=== PATIENT | male | born 1930 | race Caucasian/White ===

== ENCOUNTER 2016-10-15 07:14 | Inpatient (IN) | payer MEDICARE, MEDICAID ==
[2016-10-15] MEDS ORDERED: diphenhydrAMINE 50 MG/ML SDV IVPUSH ONE (09:43)
[2016-10-15] MEDS ORDERED: Sodium Chloride 0.9% 10 ML Syringe FLUSH PRN (09:43)
[2016-10-15] MEDS ORDERED: Furosemide 40 MG/4 ML VIAL IVPUSH ONE ×2 (09:43→14:45)
[2016-10-15] MEDS ORDERED: Menthol/Zinc Oxide Ointment 113 GM Tube TOP PRN (09:59)
[2016-10-15] MEDS ORDERED: GLYCERIN OP PRN (09:59)
[2016-10-15] MEDS ORDERED: [UNRECOGNIZED DRUG - OTHER] OP PRN (09:59)
[2016-10-15] MEDS ORDERED: PROPYLENE GLYCOL OP PRN (09:59)
[2016-10-15] MEDS ORDERED: Non-Formulary Medication 1 Each (Ergocalciferol (Vitamin D2) [Vitamin D2] 2,000 UNIT) PO SCH (10:00)
[2016-10-15] MEDS ORDERED: Polyvinyl Alcohol 1.4% Ophth Soln 15 ML Bottle EYEBOTH PRN (10:36)
--- NOTE | 2016-10-15 11:46 | PCM.HP ---
H&P History of Present Illness - General Date of Service: 10/15/16 Admit Problem/Dx: Admission Diagnosis/Problem Admission Diagnosis/Problem Bleeding from anus Source of Information: Patient History Limitations: Reports: No limitations - History of Present Illness Initial Comments - Free Text/Narative: Pt is 85 year old male , who is resident of [facility], who has been having loose stools for the past 4 days now. Pt claims initially his stools were lose and watery and since 10/13/16 he has noted some blood in the stool. But patient did not notify the [facility] staff. Yesterday the nurse legal services manager at [facility] did see blood in the stools and called for evaluation. Pt has been feeling tired when he walks. He has not had any shortness of breath, chest pain or palpitations asso with. No nausea or vomiting. No fever or chills. No abdominal pain or distension. Pt was seen by me yesterday. He did appear pale, hence CBC was done, and his Hemoglobin was down from 12.5 to 8.1 and also his HCT down from 32 to 25. Pt was advised admission, but patient declined. The [facility] staff was advised to monitor for further bloody stool. He has had 2 small bloody stool last night. Stool are now formed and his dark and tarry. On today morning visit. Pt claims that he feels exhausted. He refused his breakfast and wants to drink ensure. His vital are stable. His Hemoglobin today is down to 7.6 with HCt of 24. Admitted for blood transfusion and close monitoring. Onset of Symptoms: Reports: gradual Symptom Onset Date: 10/12/16 Improves with: Reports: None Worsens with: Reports: None Associated Symptoms: Reports: weakness. Denies: confusion, chest pain, cough, fever/chills, headaches, loss of appetite, nausea/vomiting, rash, shortness of breath - Related Data Allergies/Adverse Reactions: Allergies Allergy/AdvReac Type Severity Reaction Status Date / Time No Known Allergies Allergy Verified 10/15/16 09:45 Home Medications: Home Meds Metoprolol Succinate 200 mg PO DAILY 08/25/13 [History] Omeprazole 20 mg PO DAILY 08/25/13 [History] Simvastatin [Zocor] 20 mg PO BEDTIME 08/25/13 [History] Spironolactone [Aldactone] 25 mg PO DAILY 08/25/13 [History] Cetirizine [ZyrTEC] 10 mg PO DAILY #30 tablet 10/04/13 [Rx] Bumetanide [Bumex] 8 mg PO DAILY 08/07/14 [History] Glycerin/Propylene Glycol [Artificial Tears Drops] 15 ml OP DAILY PRN 02/15/16 [ History] Menthol/Zinc Oxide [Calmoseptine] 1 applic .XX ASDIRECTED PRN 02/15/16 [History] Oxybutynin Chloride [Ditropan Xl] 10 mg PO DAILY 02/15/16 [History] Zolpidem [Ambien] 5 mg PO BEDTIME 02/15/16 [History] Ergocalciferol (Vitamin D2) [Vitamin D2] 2,000 unit PO Q7D 10/15/16 [History] Past Medical History HEENT History: Reports: Impaired vision Cardiovascular History: Reports: Other (see below) Other Cardiovascular History: CHF Gastrointestinal History: Reports: Other (see below) Other Gastrointestinal History: acid reflux Other Genitourinary History: increased frequency of urination Musculoskeletal History: Reports: Osteoarthritis, Other (see below) Other Musculoskeletal History: kyphosis of thoraxcic region Endocrine/Metabolic History: Reports: Diabetes, type II Hematologic History: Reports: None Other Dermatologic History: rash in groin area Social & Family History - Family History Family Medical History: Noncontributory HEENT: Reports: None Cardiac: Reports: None OBGYN: Reports: None Musculoskeletal: Reports: None Hematologic: Reports: None Dermatologic: Reports: None - Tobacco Use Smoking Status *Q: Current Some Day Smoker Years of Tobacco use: 60 Packs/Tins Daily: 0 Used Tobacco, but Quit: No Month Tobacco Last Used: unknown Second Hand Smoke Exposure: Yes - Alcohol Use Days Per Week of Alcohol Use: 1 Number of Drinks Per Day: 0 Total Drinks Per Week: 0 - Recreational Drug Use Recreational Drug Use: No H&P Review of Systems - Review of Systems: Review Of Systems: See Below General: Reports: weakness, fatigue. Denies: fever, chills HEENT: Denies: hearing changes, rhinitis, post nasal drip Pulmonary: Denies: Shortness of Breath, Cough, Sputum Cardiovascular: Denies: chest pain, palpitations, lightheadedness Gastrointestinal: Reports: Diarrhea, Flatus, Hematochezia, Melena. Denies: Abdominal pain, Constipation, Nausea, Vomiting Genitourinary: Denies: dysuria, frequency Musculoskeletal: Denies: neck pain, shoulder pain, joint pain, joint swelling Skin: Reports: pallor. Denies: pruritis, rash Psychiatric: Denies: confusion, anxiety Exam - Exam Exam: See Below - Vital Signs Vital Signs: Last Vital Signs Temp 98.3 F 10/15/16 11:26 Pulse 65 10/15/16 11:20 Resp 16 10/15/16 11:26 BP 115/47 L 10/15/16 11:26 Pulse Ox 99 10/15/16 11:26 Weight: 102.058 kg - Exam General: alert, oriented, other (pallor) HEENT: PERRLA, Conjunctiva clear, EACs clear, EOMI, Hearing intact, Nares patent , Normal nasal septum, Posterior pharynx clear, TMs clear, Other (pale tongue and skin) Neck: supple, trachea midline, 2 Lungs: Clear to auscultation, Normal respiratory effort Cardiovascular: regular rate, regular rhythm Abdomen: normal bowel sounds, soft. No: distention, rigidity, tenderness, hepatomegaly, splenomegaly Extremities: edema Peripheral Pulses: 2+: carotid (L), carotid (R), radial (L), radial (R) Skin: warm, intact, other (pale) Neuro Extensive - Mental Status: alert, oriented x3, normal mood/affect, normal cognition Psychiatric: alert, normal affect, normal mood - Patient Data Lab Results last 24 hrs: Laboratory Results - last 24 hr 10/15/16 10/15/16 10/15/16 Range/Units 07:10 07:10 07:10 WBC 10.0 (4.0-11.0) K/uL RBC 2.86 L (4.50-6.50) M/uL Hgb 7.6 L (13.0-18.0) g/dL Hct 24.0 L (40.0-54.0) % MCV 84 (76-96) fL MCH 26.6 L (27.0-32.0) pg MCHC 31.7 (31.0-35.0) g/dL RDW 15.2 (11.0-16.0) % Plt Count 204 (150-400) K/uL MPV 10.5 H (6.0-10.0) fL PT 11.1 (9.0-11.5) sec INR 1.1 (1.0-3.5) Sodium 134 L (136-145) mmol/L Potassium 4.0 (3.5-5.1) mmol/L Chloride 99 (98-107) mmol/L Carbon Dioxide 28.3 (21.0-32.0) mmol/L Anion Gap 10.7 (5.0-15.0) mmol/L BUN 79 H* D (8-26) mg/dL Creatinine 1.66 H (0.70-1.30) mg/dL Est Cr Clr Drug Dosing 32.05 mL/min Estimated GFR (MDRD) 40 L (>60) MLS/MIN BUN/Creatinine Ratio 47.6 H (6-25) Glucose 127 H D (74-100) mg/dL Calcium 8.2 L (8.5-10.1) mg/dL Total Bilirubin 0.4 D (0.0-1.0) mg/dL AST 12 L (15-37) U/L ALT 9 L (12-78) U/L Alkaline Phosphatase 70 (46-116) U/L Total Protein 6.3 L (6.4-8.2) g/dL Albumin 2.8 L (3.4-5.0) g/dL Globulin 3.5 (2.2-4.2) g/dL Albumin/Globulin Ratio 0.8 (0.8-2.0) Blood Type Gel Antibody Screen Crossmatch 10/15/16 Range/Units 07:10 WBC (4.0-11.0) K/uL RBC (4.50-6.50) M/uL Hgb (13.0-18.0) g/dL Hct (40.0-54.0) % MCV (76-96) fL MCH (27.0-32.0) pg MCHC (31.0-35.0) g/dL RDW (11.0-16.0) % Plt Count (150-400) K/uL MPV (6.0-10.0) fL PT (9.0-11.5) sec INR (1.0-3.5) Sodium (136-145) mmol/L Potassium (3.5-5.1) mmol/L Chloride (98-107) mmol/L Carbon Dioxide (21.0-32.0) mmol/L Anion Gap (5.0-15.0) mmol/L BUN (8-26) mg/dL Creatinine (0.70-1.30) mg/dL Est Cr Clr Drug Dosing mL/min Estimated GFR (MDRD) (>60) MLS/MIN BUN/Creatinine Ratio (6-25) Glucose (74-100) mg/dL Calcium (8.5-10.1) mg/dL Total Bilirubin (0.0-1.0) mg/dL AST (15-37) U/L ALT (12-78) U/L Alkaline Phosphatase (46-116) U/L Total Protein (6.4-8.2) g/dL Albumin (3.4-5.0) g/dL Globulin (2.2-4.2) g/dL Albumin/Globulin Ratio (0.8-2.0) Blood Type O NEGATIVE Gel Antibody Screen Negative Crossmatch See Detail Result Diagrams: 10/15/16 07:10 10/15/16 07:10 Pernell Results last 24 hrs: Microbiology 10/15/16 08:49 Occult Blood (FIT) - Final Stool / Feces *Q Meaningful Use (ADM) - VTE *Q VTE Criteria *Q: - Stroke *Q Stroke Criteria *Q: - AMI *Q AMI Criteria *Q: - Problem List (1) Acute lower GI hemorrhage SNOMED Code(s): 36014037 ICD Code: K92.2 - GASTROINTESTINAL HEMORRHAGE, UNSPECIFIED Status: Acute Current Visit: Yes Problem List Initiated/Reviewed/Updated: Yes Orders Last 24hrs: Active Orders 24 hr Category Date Time Status Patient Status [ADT] Routine ADT 10/15/16 09:44 Active Bedrest Bathroom Privileges [RC] ASDIRECTED Care 10/15/16 09:43 Active Cardiac Monitoring [RC] CONTINUOUS Care 10/15/16 09:58 Active Height and Weight [RC] UPON Care 10/15/16 09:43 Active Intake and Output [RC] 06,18 Care 10/15/16 09:45 Active Oxygen Therapy [RC] PRN Care 10/15/16 09:44 Active VTE/DVT Education [RC] Per Unit Routine Care 10/15/16 09:44 Active Vital Signs [RC] Q4H Care 10/15/16 09:44 Active Clear Liquid Diet [DIET] Diet 10/15/16 Lunch Ordered BASIC METABOLIC PANEL,BMP [CHEM] Routine Lab 10/16/16 07:00 Ordered CULTURE MRSA SURVEY [RM] Routine Lab 10/15/16 10:45 Received HEMOGLOBIN/HEMATOCRIT,HH [HEME] Q4H Lab 10/16/16 05:11 Ordered RED BLOOD CELLS LP [BBK] Routine Lab 10/15/16 07:10 Results TYPE AND SCREEN [BBK] Routine Lab 10/15/16 07:10 Results Bumetanide [Bumex] Med 10/16/16 08:00 Active 8 mg PO DAILY Cetirizine [ZyrTEC] Med 10/16/16 08:00 Active 10 mg PO DAILY Ergocalciferol (Vitamin D2) [Vitamin D2] Med 10/15/16 10:00 Ordered 2,000 unit PO Q7D Menthol/Zinc Oxide [Calmoseptine] Med 10/15/16 09:59 Active 1 gm TOP ASDIRECTED PRN Metoprolol Succinate [Toprol XL] Med 10/16/16 08:00 Active 200 mg PO DAILY Oxybutynin [Oxybutynin ER] Med 10/16/16 08:00 Active 10 mg PO DAILY Pantoprazole [Protonix IV] Med 10/15/16 09:45 Active 40 mg IVPUSH DAILY Polyvinyl Alcohol [LiquiTears 1.4% Ophth Soln] Med 10/15/16 10:36 Active 1 - 2 ml EYEBOTH ASDIRECTED PRN Simvastatin [Zocor] Med 10/15/16 20:00 Active 20 mg PO BEDTIME Sodium Chloride 0.9% [Saline Flush] Med 10/15/16 09:43 Active 10 ml FLUSH ASDIRECTED PRN Spironolactone [Aldactone] Med 10/16/16 08:00 Active 25 mg PO DAILY Zolpidem [Ambien] Med 10/15/16 20:00 Active 5 mg PO BEDTIME Peripheral IV Insertion Adult [OM.PC] Urgent Oth 10/15/16 09:43 Ordered Transfuse PRBC [Transfuse Red Blood Cells] [COMM] Stat Oth 10/15/16 08:48 Ordered Resuscitation Status Routine Resus Stat 10/15/16 09:43 Ordered Medication Orders Artificial Tears (Liquitears 1.4% Ophth Soln) 1 - 2 ml EYEBOTH ASDIRECTED PRN PRN Reason: DRY EYES Bumetanide (Bumex) 8 mg PO DAILY [facility] Calamine/Phenol (Calmoseptine) 1 gm TOP ASDIRECTED PRN PRN Reason: Rash Cetirizine HCl (Zyrtec) 10 mg PO DAILY [facility] Metoprolol Succinate (Toprol Xl) 200 mg PO DAILY [facility] Non-Formulary Medication (Ergocalciferol (Vitamin D2) [Vitamin D2]) 2,000 unit PO Q7D [facility] Oxybutynin Chloride (Oxybutynin Er) 10 mg PO DAILY [facility] Pantoprazole Sodium (Protonix Iv) 40 mg IVPUSH DAILY [facility] Simvastatin (Zocor) 20 mg PO BEDTIME [facility] Sodium Chloride (Saline Flush) 10 ml FLUSH ASDIRECTED PRN PRN Reason: Keep Vein Open Spironolactone (Aldactone) 25 mg PO DAILY [facility] Zolpidem Tartrate (Ambien) 5 mg PO BEDTIME [facility] Assessment/Plan Comment:: Assessment:Lower GI bleed Blood loss anemia Plan: pt does appear to have active painless lower GI bleed. His stool are guillermo bloody. Might have diverticular bleed. The frequency seem to be coming down, but still has active bleeding. His hemoglobin today is down to 7.6 and he is symptomatic. His heart rate is not elevated due to betablockers he is taking , but his pulse pressure has widened. He is going form compensated anemia to decompensation.He is fatigued and claims feels exhausted. i did discuss with patient that he does need blood transfusion to make him feel better. If not will start to get worse and might have end organ symptoms like chest pain, shortness of breath with exertion, confusion and if bleeding continue, might get comatose. Today patient agrees for admission. His CMP appear normal other than BUN of 79 consistent with GI bleed. PT and INR are normal. Plan is to give him 2 units of PRBCs and closely monitor for further blood loss with serial HB/HCT. If he continue to bleed might need surgical evaluation. If bleeding stops and stabilizes might need interval colonoscopy.
[2016-10-15] MEDS: Pantoprazole 40 MG Vial IVPUSH SCH (14:55)
[2016-10-15] MEDS ORDERED: Simvastatin 20 MG Tab PO SCH (20:00)
[2016-10-15] MEDS ORDERED: Zolpidem 5 MG Tab PO SCH (20:00)
[2016-10-16] MEDS ORDERED: Metoprolol Succinate 100 MG Tab.ER ONE (07:48)
[2016-10-16] MEDS ORDERED: Spironolactone 25 MG Tab PO SCH (08:00)
[2016-10-16] MEDS ORDERED: Cetirizine 10 MG Tab PO SCH (08:00)
[2016-10-16] MEDS ORDERED: Bumetanide 2 MG Tab PO SCH (08:00)
[2016-10-16] MEDS ORDERED: Oxybutynin 5 MG Tab.ER PO SCH (08:00)
[2016-10-16] MEDS ORDERED: Metoprolol Succinate 100 MG Tab.ER PO SCH ×2 (08:00→20:00)
[2016-10-16] MEDS ORDERED: Non-Formulary Medication 1 Each (Oxybutynin Chloride [Ditropan Xl] 10 MG) PO SCH (08:00)
[2016-10-16] MEDS ORDERED: Non-Formulary Medication 1 Each (Metoprolol Succinate [Metoprolol Succinate] 200 MG) PO SCH (08:00)
--- NOTE | 2016-10-16 08:40 | PCM.DCSUM1 ---
Discharge Summary - Hospital Course Free Text/Narrative:: Pt was admitted to hospital with lower GI bleed with symptomatic anemia yesterday. He did receive 2 units of PRBC yesterday. his hemoglobin is up from 7.6 to 8.7.Also his BUN was 69 and is down to 54 today. He has not had anymore bloody stools in the hospital , he has not had any bowel movement since he has been admitted. no abdominal pain or distension. Has been feeling better, more energetic than yesterday, has been able to walk to bathroom and back with out feeling tired. It does appear like diverticular bleed from history. Apparently when patient was on cardiac monitoring , Afib ws noticed, pt claims that he has been in Afib all his life. He was on coumadin which was stopped several years ago. he does not want to go back on it at this point, which I do agree. Pt has been discharged back to care center. Will have CBC and BMP done on Thursday. Will decreased his Metoprolol ER to 100mg daily. Have started him on oral FESO4 325mg twice daily. He will need to be scheduled for interval colonoscopy for work up of GI bleed. Pt is stable enough to be discharge back to care [place]. Brief History: Pt was admitted to hospital for blood transfusion and followup on his acute lower GI bleed with blood loss anemia with hemoglobin of 7.6. - Discharge Data Discharge Date: 10/16/16 Discharge Disposition: DC/Tfer to [facility] 64 Condition: Good - Discharge Diagnosis/Problem(s) (1) Acute lower GI hemorrhage SNOMED Code(s): 80061047 ICD Code: K92.2 - GASTROINTESTINAL HEMORRHAGE, UNSPECIFIED Status: Acute Current Visit: Yes - Patient Instructions Diet: Mechanical Soft Fluid Restriction: 1500 mL Activity: As Tolerated Showering/Bathing: May Shower - Discharge Plan Home Medications: Home Meds Omeprazole 20 mg PO DAILY 08/25/13 [History] Simvastatin [Zocor] 20 mg PO BEDTIME 08/25/13 [History] Spironolactone [Aldactone] 25 mg PO DAILY 08/25/13 [History] Cetirizine [ZyrTEC] 10 mg PO DAILY #30 tablet 10/04/13 [Rx] Bumetanide [Bumex] 8 mg PO DAILY 01/05/15 [History] Glycerin/Propylene Glycol [Artificial Tears Drops] 15 ml OP DAILY PRN 02/15/16 [ History] Menthol/Zinc Oxide [Calmoseptine] 1 applic .XX ASDIRECTED PRN 02/15/16 [History] Oxybutynin Chloride [Ditropan Xl] 10 mg PO DAILY 02/15/16 [History] Zolpidem [Ambien] 5 mg PO BEDTIME 02/15/16 [History] Ergocalciferol (Vitamin D2) [Vitamin D2] 2,000 unit PO Q7D 10/15/16 [History] Oxybutynin [Oxybutynin ER] 10 mg PO DAILY tab.er 10/16/16 [Rx] Polyvinyl Alcohol [LiquiTears 1.4% Ophth Soln] 1 - 2 ml EYEBOTH ASDIRECTED PRN # 0 bottle 10/16/16 [Rx] Simvastatin [Zocor] 20 mg PO BEDTIME tablet 10/16/16 [Rx] - Discharge Summary/Plan Comment DC Time >30 min.: Yes Discharge Summary/Plan Comment: Apparently when patient was on cardiac monitoring , Afib ws noticed, pt claims that he has been in Afib all his life. He was on coumadin which was stopped several years ago. he does not want to go back on it at this point, which I do agree. Pt has been discharged back to care center. Will have CBC and BMP done on Thursday. Will decreased his Metoprolol ER to 100mg daily. Have started him on oral FESO4 325mg twice daily. He will need to be scheduled for interval colonoscopy for work up of GI bleed. Pt is stable enough to be discharge back to care center. - General Info Date of Service: 10/16/16 Admission Dx/Problem (Free Text: Pt claims he has been feeling better. he feel more energetic today. He has been able to walk to bathroom and back with out feeling tired or weak. Has not had any more stools or blood per rectum since admission. no abdominal pain or discomfort. Functional Status: Reports: tolerating diet, ambulating, urinating - Review of Systems General: Denies: Fever, Weakness, Fatigue HEENT: Denies: headaches, sinus congestion Pulmonary: Denies: shortness of breath, hemoptysis, wheezing Cardiovascular: Denies: Chest Pain, Lightheadedness Gastrointestinal: Denies: Abdominal pain, Decreased appetite, Hematochezia, Melena, Nausea, Vomiting Genitourinary: Denies: dysuria, frequency Musculoskeletal: Denies: neck pain, shoulder pain, joint pain, joint swelling Skin: Denies: pruritis, rash Neurological: Denies: Confusion, Dizziness - Patient Data Vitals - Most Recent: Last Vital Signs Temp 98.2 F 10/16/16 00:58 Pulse 59 L 10/16/16 00:58 Resp 16 10/16/16 00:58 BP 135/53 L 10/16/16 00:58 Pulse Ox 97 10/16/16 00:58 Weight - Most Recent: 102.058 kg I&O - Last 24 hours: Intake & Output 10/15/16 10/16/16 10/16/16 22:59 06:59 14:59 Intake Total 1230 520 Output Total 600 Balance 630 520 Lab Results - Last 24 hrs: Laboratory Results - last 24 hr 10/15/16 10/15/16 10/16/16 Range/Units 07:10 07:10 07:20 Hgb 8.7 L (13.0-18.0) g/dL Hct 26.6 L (40.0-54.0) % PT 11.1 (9.0-11.5) sec INR 1.1 (1.0-3.5) Sodium (136-145) mmol/L Potassium (3.5-5.1) mmol/L Chloride (98-107) mmol/L Carbon Dioxide (21.0-32.0) mmol/L Anion Gap (5.0-15.0) mmol/L BUN (8-26) mg/dL Creatinine (0.70-1.30) mg/dL Est Cr Clr Drug Dosing mL/min Estimated GFR (MDRD) (>60) MLS/MIN BUN/Creatinine Ratio (6-25) Glucose (74-100) mg/dL Calcium (8.5-10.1) mg/dL Blood Type O NEGATIVE Gel Antibody Screen Negative Crossmatch See Detail 10/16/16 Range/Units 07:20 Hgb (13.0-18.0) g/dL Hct (40.0-54.0) % PT (9.0-11.5) sec INR (1.0-3.5) Sodium 139 (136-145) mmol/L Potassium 3.4 L (3.5-5.1) mmol/L Chloride 102 (98-107) mmol/L Carbon Dioxide 28.2 (21.0-32.0) mmol/L Anion Gap 12.2 (5.0-15.0) mmol/L BUN 59 H* D (8-26) mg/dL Creatinine 1.40 H (0.70-1.30) mg/dL Est Cr Clr Drug Dosing 38.00 mL/min Estimated GFR (MDRD) 48 L (>60) MLS/MIN BUN/Creatinine Ratio 42.1 H (6-25) Glucose 96 (74-100) mg/dL Calcium 7.9 L (8.5-10.1) mg/dL Blood Type Gel Antibody Screen Crossmatch INA Results - Last 24 hrs: Microbiology 10/15/16 08:49 Occult Blood (FIT) - Final Stool / Feces Med Orders - Current: Current Medications Artificial Tears (Liquitears 1.4% Ophth Soln) 1 - 2 ml EYEBOTH ASDIRECTED PRN PRN Reason: DRY EYES Bumetanide (Bumex) 8 mg PO DAILY [facility] Calamine/Phenol (Calmoseptine) 1 gm TOP ASDIRECTED PRN PRN Reason: Rash Cetirizine HCl (Zyrtec) 10 mg PO DAILY [facility] Non-Formulary Medication (Ergocalciferol (Vitamin D2) [Vitamin D2]) 2,000 unit PO Q7D [facility] Oxybutynin Chloride (Oxybutynin Er) 10 mg PO DAILY [facility] Pantoprazole Sodium (Protonix Iv) 40 mg IVPUSH DAILY [facility] Last Admin: 10/15/16 14:55 Dose: 40 mg Simvastatin (Zocor) 20 mg PO BEDTIME [facility] Last Admin: 10/15/16 21:17 Dose: 20 mg Sodium Chloride (Saline Flush) 10 ml FLUSH ASDIRECTED PRN PRN Reason: Keep Vein Open Spironolactone (Aldactone) 25 mg PO DAILY [facility] Zolpidem Tartrate (Ambien) 5 mg PO BEDTIME [facility] Last Admin: 10/15/16 21:17 Dose: 5 mg Discontinued Medications Diphenhydramine HCl (Benadryl) 25 mg IVPUSH ONETIME ONE Stop: 10/15/16 09:44 Last Admin: 10/15/16 20:34 Dose: Not Given Furosemide (Lasix) 20 mg IVPUSH ONETIME ONE Stop: 10/15/16 09:44 Last Admin: 10/15/16 14:59 Dose: 20 mg Furosemide (Lasix) 20 mg IVPUSH ONETIME ONE Stop: 10/15/16 14:46 Last Admin: 10/15/16 20:30 Dose: Not Given Metoprolol Succinate (Toprol Xl) 200 mg PO DAILY [facility] Metoprolol Succinate (Toprol Xl) Confirm Administered Dose 100 mg .ROUTE .STK- MED ONE Stop: 10/16/16 07:49 - Exam General: Reports: alert, oriented HEENT: Reports: Pupils equal, Pupils reactive, EOMI, Mucous membr. moist/pink Neck: Reports: supple Lungs: Reports: Clear to auscultation, Normal respiratory effort Cardiovascular: Reports: Irregular Rhythm Abdomen: Reports: bowel sounds present, soft, no tenderness, no distension Back Exam: Reports: normal inspection, full range of motion Extremities: Reports: edema (chronic has caitlin wraps on the feet and lower legs.) Skin: Reports: warm, intact, moist Neurological: Reports: no new focal deficit Psy/Mental Status: Reports: alert, normal affect, normal mood *Q Meaningful Use (DIS) - VTE *Q VTE Criteria *Q: - Stroke *Q Stroke Criteria *Q: - AMI *Q AMI Criteria *Q:
[2016-10-16] MEDS: Pantoprazole 40 MG Vial IVPUSH SCH ×2 (08:50→10:21)
[2016-10-16 10:23] VITALS: BP 125/55
[2016-10-16] MEDS ORDERED: Ferrous Sulfate 325 MG Tab PO SCH (17:00)
[2016-10-17] MEDS ORDERED: Ergocalciferol (Vitamin D2) 50,000 Unit Cap PO SCH (10:30)
== END 2016-10-16 10:45 | DRG 812 ==
LOC: LB.CC 07:14 → UNDOADMIN 08:40 → LB.MS 08:40
PROVIDERS: ADMIT Family Medicine; ATTEND Family Medicine
PROC: 30233N1 Transfusion of Nonautologous Red Blood Cells into Peripheral Vein, Percutaneous Approach (ICD-10-PCS; principal; 2016-10-15)
DX: D64.9 Anemia, unspecified (principal); K92.2 Gastrointestinal hemorrhage, unspecified
CPT/HCPCS: 36415; 36430; 80048; 80053; 82274; 85014; 85018; 85027; 85610; 86850; 86900; 86901; 86920; 86922; A9270-GY; C9113; J1940; P9016

== ENCOUNTER 2016-11-11 07:11 | Day surgery (SDC) | payer MEDICARE, MEDICAID ==
[~2016-11-11 07:11] MED LIST: Metoclopramide 10 MG/2 ML SDV IV PRN; Sodium Chloride 0.9% 10 ML Syringe FLUSH PRN
[2016-11-11] MEDS: Sodium Chloride 0.9% 1,000 ML IV SCH ×2 (08:30→10:30)
[2016-11-11] MEDS ORDERED: Propofol 200 MG/20 ML SDV ONE (11:50)
[2016-11-11 12:24] VITALS: BP 118/64
--- NOTE | 2016-11-11 18:19 | OR ---
DATE OF OPERATION: 11/11/2016 PREOPERATIVE DIAGNOSES: 1. Lower GI bleed. 2. Chronic diarrhea. POSTOPERATIVE DIAGNOSES: 1. Diverticulosis of the sigmoid. 2. Otherwise normal colonoscopy. OPERATION: Colonoscopy. COMPLICATIONS: None. DRAINS: None. SPECIMENS: None. ESTIMATED BLOOD LOSS: Zero. ANESTHESIA: General propofol anesthesia. INDICATION: Mr. Fulton is an 85-year-old gentleman who has had a recent history of lower GI bleed requiring 2 units of blood transfusion as well as chronic diarrhea. The above- mentioned procedure was explained. The risks, benefits, complications were explained. The patient understood and agreed, and was brought to the operating room. DESCRIPTION OF PROCEDURE: The patient was brought to the operating room, placed in a left lateral decubitus position, and satisfactory general propofol anesthesia was administered. We began by performing a rectal examination which revealed no significant abnormalities. I then placed the endoscope by finger introduction into the rectum and subsequently advanced this to the level of the cecum. The appendiceal orifice was identified. The ileocecal valve was identified, and the cecal strap was identified. Careful evaluation of the mucosa was then performed on withdrawal. The prep was fair and after washout, views were fair. Small subtle lesions may have been missed due to a large amount of retained semi-solid stool. Next, a careful evaluation revealed diverticulosis of the sigmoid colon. No gross lesions. No polyps or telangiectasias were identified. There were no other abnormalities. The rectum was within normal limits. However, there were apparently grade 1 hemorrhoids. The colon was then decompressed and the endoscope was withdrawn. The patient tolerated the procedure well. There were no complications. Instrument count was correct. The patient was woken in the OR and taken to PACU for recovery. DEMETRIO /[id number]
== END 2016-11-11 13:40 ==
LOC: LB.SDS 07:11
PROVIDERS: ATTEND Surgery
DX: Z12.11 Encounter for screening for malignant neoplasm of colon (principal); K57.30 Diverticulosis of large intestine without perforation or abscess without bleeding; Z87.891 Personal history of nicotine dependence
CPT/HCPCS: 45378; J2704; J7040

== ENCOUNTER 2016-11-25 23:27 | Emergency (ER) | payer MEDICARE, MEDICAID ==
[2016-11-25] MEDS ORDERED: Diphtheria/Tetanus Toxoids,Adult (Td) 0.5 ML SDV IM ONE (23:45)
[2016-11-26 00:38] VITALS: BP 137/81
--- NOTE | 2016-11-26 11:48 | EDM.PDOC ---
ED HPI Skin/Rash - General Chief Complaint: Laceration Stated Complaint: laceration Time Seen by Provider: 11/25/16 23:30 Source: Reports: Patient History Limitations: Reports: No limitations - History of Present Illness INITIAL COMMENTS - FREE TEXT/NARRATIVE: According to patient he was trying to get into his recliner chair and her accidentally fell forward and hit his forehead against the floor about 20 minutes ago. No loss of consciousness. No headache. No nausea of vomiting. Pt is alert and claims he is not hurting now, but has been bleeding form his forehead. No other injuries. Pt has not had tetanus in the past per his preference. No blurry vision, no weakness. no other complaints. Symptom Onset Date: 11/25/16 Symptom Onset Time: 11:10 Severity: mild Sick Contact: no Associated symptoms: Denies: confusion, headaches, shortness of breath, weakness , chest pain, cough, fever/chills, diaphoresis, loss of appetite, nausea/ vomiting, rash - Related Data Allergies Allergy/AdvReac Type Severity Reaction Status Date / Time No Known Allergies Allergy Verified 11/25/16 23:28 Home Meds: Ambulatory Orders Medication Instructions Recorded Confirmed Omeprazole 20 mg PO DAILY 08/25/13 11/26/16 Simvastatin [Zocor] 20 mg PO BEDTIME 08/25/13 11/26/16 Spironolactone [Aldactone] 25 mg PO DAILY 08/25/13 11/26/16 Cetirizine [ZyrTEC] 10 mg PO DAILY #30 tablet 10/04/13 11/26/16 Bumetanide [Bumex] 8 mg PO DAILY 08/07/14 11/26/16 Glycerin/Propylene Glycol 15 ml OP DAILY PRN 02/15/16 11/26/16 [Artificial Tears Drops] Menthol/Zinc Oxide [Calmoseptine] 1 applic .XX ASDIRECTED PRN 02/15/16 11/26/16 Oxybutynin Chloride [Ditropan Xl] 10 mg PO DAILY 02/15/16 11/26/16 Zolpidem [Ambien] 5 mg PO BEDTIME 02/15/16 11/26/16 Ergocalciferol (Vitamin D2) 2,000 unit PO Q7D 10/15/16 11/26/16 [Vitamin D2] Ferrous Sulfate 325 mg PO BIDMEALS #60 tablet 10/16/16 11/26/16 Metoprolol Succinate [Toprol XL 100 mg PO BEDTIME #30 tab.er 10/16/16 11/26/16 100mg] Polyvinyl Alcohol [LiquiTears 1.4% 1 - 2 ml EYEBOTH ASDIRECTED PRN #0 10/16/16 11/26/16 Ophth Soln] bottle Simvastatin [Zocor] 20 mg PO BEDTIME tablet 10/16/16 11/26/16 Past Medical History HEENT History: Reports: Impaired vision Cardiovascular History: Reports: High cholesterol, Hypertension, Other (see below) Other Cardiovascular History: CHF Respiratory History: Reports: COPD Gastrointestinal History: Reports: GERD, Other (see below) Other Gastrointestinal History: acid reflux Genitourinary History: Reports: Urinary incontinence Other Genitourinary History: increased frequency of urination Musculoskeletal History: Reports: Osteoarthritis, Other (see below) Other Musculoskeletal History: kyphosis of thoracic region Endocrine/Metabolic History: Reports: Diabetes, type II Other Endocrine/Metabolic History: at [facility], does not have blood glucoses taken nor does he take any medications for it. Hematologic History: Reports: None Other Dermatologic History: rash in groin area - Infectious Disease History Infectious Disease History: Reports: Chicken pox - Past Surgical History Male Surgical History: Reports: None Social & Family History - Family History Family Medical History: Noncontributory HEENT: Reports: None Cardiac: Reports: None OBGYN: Reports: None Musculoskeletal: Reports: None Hematologic: Reports: None Dermatologic: Reports: None - Tobacco Use Smoking Status *Q: Former Smoker Years of Tobacco use: 60 Packs/Tins Daily: 0 Used Tobacco, but Quit: Yes Month Tobacco Last Used: na Second Hand Smoke Exposure: No - Caffeine Use Caffeine Use: Reports: Coffee Other Caffeine Use: 2-3 cup/day - Alcohol Use Days Per Week of Alcohol Use: 1 Number of Drinks Per Day: 0 Total Drinks Per Week: 0 - Recreational Drug Use Recreational Drug Use: No ED ROS GENERAL - Review of Systems Review Of Systems: See Below Constitutional: Denies: fever, chills HEENT: Denies: Ear discharge, Ear pain, Eye pain, Vision change Respiratory: Denies: Cough, Sputum Cardiovascular: Denies: Chest pain, Lightheadedness GI/Abdominal: Denies: Abdominal pain, Constipation, Nausea, Vomiting : Denies: flank pain, frequency Musculoskeletal: Denies: joint pain, joint swelling Skin: Denies: pruritis, rash Neurological: Denies: Confusion, Dizziness, Headache, Numbness, Paresthesia, Syncope, Tingling ED EXAM, SKIN/RASH Exam: See Below Exam Limited By: No limitations General Appearance: alert, WD/WN, no apparent distress Eye Exam: bilateral eye: EOMI, PERRL Ears: normal external exam, normal canal, hearing grossly normal, normal TMs Nose: normal inspection, normal mucosa, no blood Throat/Mouth: Normal inspection, Normal lips, Normal teeth, Normal gums, Normal oropharynx, Normal voice, No airway compromise Head: normocephalic, other (There is a 3.3 cm long laceartion over the upper middle forehead, almost in the frontal area of the scalp. Gapping and actively bleeding. Mild tenderness to pressure.). No: facial swelling, facial tenderness Neck: normal inspection, supple, non-tender, full range of motion Respiratory/Chest: no respiratory distress, lungs clear, normal breath sounds, no accessory muscle use, chest non-tender Cardiovascular: normal peripheral pulses, regular rate, rhythm, no edema, no gallop, no JVD, no murmur, no rub Neurological: alert, oriented, CN II-XII intact, normal cognition, normal gait, normal reflexes, no motor/sensory deficits, other (GCS of 15) ED SKIN PROCEDURES - Laceration/Wound Repair Forehead Lac/wound length in cm: 3.3 Appearance: superficial, linear Distal NVT: neuro & vascular intact Local anesthesia - Lidocaine (Xylocaine): 1% with epi Local anesthetic volume: 3cc Skin prep: providone-iodine (betadine) Exploration/Debridement/Repair: wound explored Closed with: sutures Suture size: 4-0 # of sutures: 6 Suture type: other (ethilon) Sterile dressing applied: provider Tetanus status addressed: Yes (given today) Complications: No Course - Vital Signs Text/Narrative:: Pt is alert and oriented. His GCS is 15. He has no pain or complaints. He does have a 3.3 cm long gapping laceration. The wound was closed under aseptic precautions with 6 intermittent sutures using 4 O ethilon. Bleeding was controlled. Pt tolerated the procedure well.Pt did receive tetanus today. Advised not to wet the wound for 48 hrs. daily simple antibiotic dressing. wound infection precautions to be monitored. Suture removal in 1 wk. Last Recorded V/S: Last Vital Signs Temp 96.7 F 11/25/16 23:30 Pulse 83 11/25/16 23:30 Resp 16 11/25/16 23:30 BP 137/81 11/25/16 23:30 Pulse Ox 92 L 11/25/16 23:30 - Orders/Labs/Meds Orders: Active Orders 24 hr Category Date Time Status Vaccines to be Administered [RC] PER UNIT ROUTINE Care 11/25/16 23:45 Active Meds: Medications Discontinued Medications Generic Name Dose Route Start Last Admin Trade Name Freq PRN Reason Stop Dose Admin Tetanus/Diphtheria Toxoids 0.5 ml 11/25/16 23:45 11/25/16 23:50 Tenivac IM 11/25/16 23:46 0.5 ml .ONCE ONE Administration Departure - Departure Time of Disposition: 12:15 Disposition: DC/[facility]fer to [facility] Condition: fair Clinical Impression: Scalp laceration Instructions: Wound Infection, [id number], Laceration Care, Adult, Easy-to- Read Forms: ED Department Discharge Additional Instructions: Keep sutured area clean and dry for next 48 hours. Daily dressing changes as follows: cleanse area with normal saline and dab dry, keeping suture area dry while cleaning. Apply thin strip of Mupirocin ointment to affected area, then cover with non-adherent Telfa dressing and secure with tape. Dressing changes to be completed for 3 days, then may leave open to air. Follow up in clinic in 1 week for suture removal. Be sure to monitor for signs and symptoms of infection present, including: increased redness, increased swelling, increased pain or tenderness to touch, foul drainage, and/or fever present. Should any of these symptoms occur, be seen in clinic right away. Call with any questions. - Problem List & Annotations (1) Scalp laceration SNOMED Code(s): 480289835 Code(s): S01.01XA - LACERATION WITHOUT FOREIGN BODY OF SCALP, INITIAL ENCOUNTER Status: Acute - Problem List Review Problem List Initiated/Reviewed/Updated: Yes - My Orders Last 24 Hours: My Active Orders 11/25/16 23:45 Vaccines to be Administered [RC] PER UNIT ROUTINE - Assessment/Plan Last 24 Hours: My Active Orders 11/25/16 23:45 Vaccines to be Administered [RC] PER UNIT ROUTINE Assessment:: Forehead laceration Plan: Pt is alert and oriented. His GCS is 15. He has no pain or complaints. He does have a 3.3 cm long gapping laceration. The wound was closed under aseptic precautions with 6 intermittent sutures using 4 O ethilon. Bleeding was controlled. Pt tolerated the procedure well. Advised not to wet the wound for 48 hrs. daily simple antibiotic dressing. wound infection precautions to be monitored. Suture removal in 1 wk.
== END 2016-11-26 ==
LOC: LB.ED 23:27
DX: S01.01XA Laceration without foreign body of scalp, initial encounter (principal); E78.00 Pure hypercholesterolemia, unspecified; J44.9 Chronic obstructive pulmonary disease, unspecified; I11.0 Hypertensive heart disease with heart failure; I50.9 Heart failure, unspecified; K21.9 Gastro-esophageal reflux disease without esophagitis; Z23 Encounter for immunization; M19.90 Unspecified osteoarthritis, unspecified site; E11.9 Type 2 diabetes mellitus without complications; Z87.891 Personal history of nicotine dependence; W18.09XA Striking against other object with subsequent fall, initial encounter
CPT/HCPCS: 12002; 12013; 90471; 90714; 99282; 99283-25

== ENCOUNTER 2017-09-21 10:15 | Inpatient (IN) | payer MEDICARE, MEDICAID ==
[2017-09-21] MEDS ORDERED: Sodium Chloride 0.9% 10 ML Syringe FLUSH PRN (16:32)
--- NOTE | 2017-09-21 17:50 | PCM.HP ---
H&P History of Present Illness - General Date of Service: 09/21/17 Admit Problem/Dx: Admission Diagnosis/Problem Admission Diagnosis/Problem Hyponatremia Source of Information: Patient History Limitations: Reports: No Limitations - History of Present Illness Initial Comments - Free Text/Narative: Pt is a 86 year resident of [facility] with CHF, CRF and gout, who has had chronic lower extremity edema for a long time which has recently got worse. Hence patient was started on metalazone 10mg daily and also spironolactone, along with his bumex 2mg twice daily. Pt has been on metalazone for 1 wk now. He had his BMP done today to see, if creat was improving. and it was noted that his creat had got worse form 2.85 on 09/11/17 to 3.76 today. His BUN has gone up form 92 to 158. Also his sodium has dropped to 127. Hence patient has been admitted for electrolyte correction and improve his renal function. Pt does not complain of any discomfort, fatigue or shortness of breath Severity: Mild Improves with: Reports: None Worsens with: Reports: None Associated Symptoms: Denies: Confusion, Chest Pain, Cough, Diaphoresis, Fever/ Chills, Headaches, Loss of Appetite, Nausea/Vomiting, Rash, Seizure, Shortness of Breath, Syncope, Weakness - Related Data Allergies/Adverse Reactions: Allergies Allergy/AdvReac Type Severity Reaction Status Date / Time No Known Allergies Allergy Verified 09/21/17 16:55 Home Medications: Home Meds Omeprazole 20 mg PO DAILY 08/25/13 [History] Simvastatin [Zocor] 20 mg PO BEDTIME 08/25/13 [History] Spironolactone [Aldactone] 25 mg PO DAILY 08/25/13 [History] Cetirizine [ZyrTEC] 10 mg PO DAILY #30 tablet 10/04/13 [Rx] Bumetanide [Bumex] 8 mg PO DAILY 08/07/14 [History] Glycerin/Propylene Glycol [Artificial Tears Drops] 15 ml OP DAILY PRN 02/15/16 [ History] Menthol/Zinc Oxide [Calmoseptine] 1 applic .XX ASDIRECTED PRN 02/15/16 [History] Oxybutynin Chloride [Ditropan Xl] 10 mg PO DAILY 02/15/16 [History] Zolpidem [Ambien] 5 mg PO BEDTIME 02/15/16 [History] Ergocalciferol (Vitamin D2) [Vitamin D2] 2,000 unit PO Q7D 10/15/16 [History] Ferrous Sulfate 325 mg PO BIDMEALS #60 tablet 10/16/16 [Rx] Metoprolol Succinate [Toprol XL 100mg] 100 mg PO BEDTIME #30 tab.er 10/16/16 [Rx ] Polyvinyl Alcohol [LiquiTears 1.4% Ophth Soln] 1 - 2 ml EYEBOTH ASDIRECTED PRN # 0 bottle 10/16/16 [Rx] Simvastatin [Zocor] 20 mg PO BEDTIME tablet 10/16/16 [Rx] Past Medical History HEENT History: Reports: Impaired Vision Cardiovascular History: Reports: High Cholesterol, Hypertension, Other (See Below) Other Cardiovascular History: CHF Respiratory History: Reports: COPD Gastrointestinal History: Reports: GERD, Other (See Below) Other Gastrointestinal History: acid reflux Genitourinary History: Reports: Urinary Incontinence Other Genitourinary History: increased frequency of urination Musculoskeletal History: Reports: Osteoarthritis, Other (See Below) Other Musculoskeletal History: kyphosis of thoracic region Endocrine/Metabolic History: Reports: Diabetes, Type II Other Endocrine/Metabolic History: at [facility], does not have blood glucoses taken nor does he take any medications for it. Hematologic History: Reports: None Other Dermatologic History: rash in groin area - Infectious Disease History Infectious Disease History: Reports: Chicken Pox - Past Surgical History Male Surgical History: Reports: None Social & Family History - Family History Family Medical History: Noncontributory HEENT: Reports: None Cardiac: Reports: None OBGYN: Reports: None Musculoskeletal: Reports: None Hematologic: Reports: None Dermatologic: Reports: None - Tobacco Use Smoking Status *Q: Former Smoker Years of Tobacco use: 60 Packs/Tins Daily: 0 Used Tobacco, but Quit: Yes Month Tobacco Last Used: na Second Hand Smoke Exposure: No - Caffeine Use Caffeine Use: Reports: Coffee Other Caffeine Use: 2-3 cup/day - Alcohol Use Days Per Week of Alcohol Use: 1 Number of Drinks Per Day: 0 Total Drinks Per Week: 0 - Recreational Drug Use Recreational Drug Use: No H&P Review of Systems - Review of Systems: Review Of Systems: See Below General: Denies: Fever, Chills, Malaise, Weakness, Fatigue, Night Sweats HEENT: Denies: Glasses, Sinus Congestion, Sore Throat, Vertigo, Visual Changes Pulmonary: Denies: Shortness of Breath, Wheezing, Cough, Sputum Cardiovascular: Denies: Chest Pain, Lightheadedness Gastrointestinal: Denies: Abdominal Pain, Nausea, Vomiting Genitourinary: Denies: Frequency, Burning, Pain, Urgency Musculoskeletal: Denies: Joint Pain, Joint Swelling Skin: Denies: Pruritis, Rash, Erythema Psychiatric: Denies: Depression, Mood Lability, Anxiety Neurological: Denies: Dizziness, Headache, Numbness, Seizure, Syncope, Tingling , Weakness Exam - Exam Exam: See Below - Exam General: Alert, Oriented, 4 HEENT: PERRLA, Hearing Intact, Mucosa Moist & [place], Nares Patent, Normal Nasal Septum, Posterior Pharynx Clear, Conjunctiva Clear, EOMI, EACs Clear, TMs Clear Neck: Supple, Trachea Midline, 2 Lungs: Clear to Auscultation, Normal Respiratory Effort Cardiovascular: Regular Rate, Regular Rhythm GI/Abdominal Exam: Normal Bowel Sounds, Soft, Non-Tender, No Organomegaly, No Distention, No Abnormal Bruit, No Mass, Pelvis Stable Back Exam: Normal Inspection, Full Range of Motion, NT Extremities: Pedal Edema (3+ b/l has Unna boot due to skin breakdown from edema) - Patient Data Lab Results Last 24 hrs: Laboratory Results - last 24 hr 09/21/17 09/21/17 Range/Units 10:15 10:15 WBC 8.1 D (4.0-11.0) K/uL RBC 3.99 L (4.50-6.50) M/uL Hgb 11.7 L (13.0-18.0) g/dL Hct 35.0 L (40.0-54.0) % MCV 88 (76-96) fL MCH 29.3 (27.0-32.0) pg MCHC 33.4 (31.0-35.0) g/dL RDW 14.4 (11.0-16.0) % Plt Count 204 (150-400) K/uL MPV 9.5 (6.0-10.0) fL Sodium 127 L (136-145) mmol/L Potassium 4.6 (3.5-5.1) mmol/L Chloride 94 L (98-107) mmol/L Carbon Dioxide 26.0 (21.0-32.0) mmol/L Anion Gap 11.6 (5.0-15.0) mmol/L BUN 158 H* (8-26) mg/dL Creatinine 3.76 H* D (0.70-1.30) mg/dL Est Cr Clr Drug Dosing TNP Estimated GFR (MDRD) 15 L (>60) MLS/MIN BUN/Creatinine Ratio 42.0 H (6-25) Glucose 100 (74-100) mg/dL Calcium 9.1 (8.5-10.1) mg/dL Total Bilirubin 0.5 (0.0-1.0) mg/dL AST 18 (15-37) U/L ALT 16 (12-78) U/L Alkaline Phosphatase 91 (46-116) U/L Total Protein 7.8 (6.4-8.2) g/dL Albumin 3.5 (3.4-5.0) g/dL Globulin 4.3 H (2.2-4.2) g/dL Albumin/Globulin Ratio 0.8 (0.8-2.0) Result Diagrams: 09/21/17 10:15 09/21/17 10:15 *Q Meaningful Use (ADM) - VTE *Q VTE Criteria *Q: - Stroke *Q Stroke Criteria *Q: - AMI *Q AMI Criteria *Q: - Problem List (1) CRF (chronic renal failure) SNOMED Code(s): 23379113 ICD Code: N18.9 - CHRONIC KIDNEY DISEASE, UNSPECIFIED Status: Acute Current Visit: Yes (2) CHF (congestive heart failure) SNOMED Code(s): 30025584 ICD Code: I50.9 - HEART FAILURE, UNSPECIFIED Status: Acute Current Visit : Yes Problem List Initiated/Reviewed/Updated: Yes Orders Last 24hrs: Active Orders 24 hr Category Date Time Status Patient Status [ADT] Routine ADT 09/21/17 16:32 Active Bedrest Bathroom Privileges [RC] ASDIRECTED Care 09/21/17 16:32 Active Height and Weight [RC] UPON Care 09/21/17 16:32 Active Intake and Output [RC] QSHIFT Care 09/21/17 16:36 Active Oxygen Therapy [RC] PRN Care 09/21/17 16:32 Active VTE/DVT Education [RC] Per Unit Routine Care 09/21/17 16:32 Active Vital Signs [RC] Q4H Care 09/21/17 16:32 Active Heart Healthy Diet [DIET] Diet 09/21/17 Dinner Ordered COMPREHENSIVE METABOLIC PN,CMP [CHEM] Routine Lab 09/22/17 07:30 Ordered MAGNESIUM [CHEM] Routine Lab 09/22/17 07:30 Ordered PHOSPHORUS [CHEM] Routine Lab 09/22/17 07:30 Ordered Furosemide [Lasix] Med 09/21/17 22:00 Active 20 mg IVPUSH Q8HR Sodium Chloride 0.9% [Normal Saline] 1,000 ml Med 09/21/17 16:45 Active IV ASDIRECTED Sodium Chloride 0.9% [Saline Flush] Med 09/21/17 16:32 Active 10 ml FLUSH ASDIRECTED PRN Peripheral IV Insertion Adult [OM.PC] Routine Oth 09/21/17 16:32 Ordered Resuscitation Status Routine Resus Stat 09/21/17 16:32 Ordered Medication Orders Furosemide (Lasix) 20 mg IVPUSH Q8HR GENO Sodium Chloride (Normal Saline) 1,000 mls @ 100 mls/hr IV ASDIRECTED GENO Sodium Chloride (Saline Flush) 10 ml FLUSH ASDIRECTED PRN PRN Reason: Keep Vein Open Assessment/Plan Comment:: Assement: Acute on chronic renal failure with on going CHF Plan: Apparently patient has very poor compliance with his health. he does have Chronic CHF with Afib, he continue to drink 4618-0300 cc of fluid and develops chronic lower extremity edema which has been getting worse. He was on bumex 2mg BID. To control his edema recently spironolactone and metazolone were added. as his Creatinine was starting to rasie in the past 2 wks. Also Unna boot ws applied by me 1 wk ago as he has skin breakdown from edema in the legs. Now he adamson developed hyponatremia with ARF, which might be worsening of CHF in directly making his renal function worsen. his hyponatremia could be related to renal sodium loss. Hence i have admitted patient to hospital. will stat him on normal saline at 100cc/hr, monitor for CHF signs. also will start IV lasix 20mg q 8 hrs to jump start the kidneys. and place him on low protein diet to prevent further rise of BUN, and monitor. Will repeat CMP and magnesium and PO4 in am.
[2017-09-21] MEDS: Furosemide 20 MG/2 ML VIAL IVPUSH SCH (22:38)
[2017-09-22] MEDS: Sodium Chloride 0.9% 1,000 ML IV SCH ×2 (04:17→19:32)
[2017-09-22] MEDS: Furosemide 20 MG/2 ML VIAL IVPUSH SCH ×3 (06:57→22:25)
--- NOTE | 2017-09-22 10:03 | PCM.PN ---
- General Info Date of Service: 09/22/17 Admission Dx/Problem (Free Text): Pt claims he feels fine. He is not having shortness of breath, no fatigue. tolerating diet well. Has been diuresing well with lasix IV. IS on NS. His I/O was 1920/1550.No fever or chills. Functional Status: Reports: Tolerating Diet, Ambulating, Urinating - Review of Systems General: Denies: Fever, Weakness, Fatigue HEENT: Denies: Sinus Congestion, Sore Throat Pulmonary: Denies: Shortness of Breath, Cough, Sputum, Hemoptysis Cardiovascular: Denies: Chest Pain, Lightheadedness Gastrointestinal: Denies: Abdominal Pain, Nausea, Vomiting Genitourinary: Reports: Frequency. Denies: Dysuria Musculoskeletal: Denies: Joint Pain, Joint Swelling Skin: Denies: Pruritis, Rash Neurological: Denies: Confusion, Dizziness, Headache, Numbness, Tingling - Patient Data Vitals - Most Recent: Last Vital Signs Temp 98.7 F 09/22/17 04:00 Pulse 80 09/22/17 04:00 Resp 18 09/22/17 04:00 BP 123/59 L 09/22/17 04:00 Pulse Ox 95 09/22/17 04:00 Weight - Most Recent: 85.366 kg I&O - Last 24 Hours: Intake & Output 09/21/17 09/22/17 09/22/17 22:59 06:59 14:59 Intake Total 1920 Output Total 1550 Balance 370 Lab Results Last 24 Hours: Laboratory Results - last 24 hr 09/21/17 09/21/17 09/22/17 Range/Units 10:15 10:15 07:15 WBC 8.1 D (4.0-11.0) K/uL RBC 3.99 L (4.50-6.50) M/uL Hgb 11.7 L (13.0-18.0) g/dL Hct 35.0 L (40.0-54.0) % MCV 88 (76-96) fL MCH 29.3 (27.0-32.0) pg MCHC 33.4 (31.0-35.0) g/dL RDW 14.4 (11.0-16.0) % Plt Count 204 (150-400) K/uL MPV 9.5 (6.0-10.0) fL Sodium 127 L 139 (136-145) mmol/L Potassium 4.6 4.3 (3.5-5.1) mmol/L Chloride 94 L 100 (98-107) mmol/L Carbon Dioxide 26.0 26.1 (21.0-32.0) mmol/L Anion Gap 11.6 17.2 H (5.0-15.0) mmol/L BUN 158 H* 137 H* (8-26) mg/dL Creatinine 3.76 H* D 3.12 H* (0.70-1.30) mg/dL Est Cr Clr Drug Dosing TNP 15.62 Estimated GFR (MDRD) 15 L 19 L (>60) MLS/MIN BUN/Creatinine Ratio 42.0 H 43.9 H (6-25) Glucose 100 105 H (74-100) mg/dL Calcium 9.1 9.1 (8.5-10.1) mg/dL Phosphorus 5.2 H (2.5-4.9) mg/dL Magnesium 2.0 (1.8-2.4) mg/dL Total Bilirubin 0.5 0.5 (0.0-1.0) mg/dL AST 18 18 (15-37) U/L ALT 16 15 (12-78) U/L Alkaline Phosphatase 91 88 (46-116) U/L Total Protein 7.8 7.9 (6.4-8.2) g/dL Albumin 3.5 3.2 L (3.4-5.0) g/dL Globulin 4.3 H 4.7 H (2.2-4.2) g/dL Albumin/Globulin Ratio 0.8 0.7 L (0.8-2.0) Med Orders - Current: Current Medications Furosemide (Lasix) 20 mg IVPUSH Q8HR [facility] Last Admin: 09/22/17 06:57 Dose: 20 mg Sodium Chloride (Normal Saline) 1,000 mls @ 100 mls/hr IV ASDIRECTED [facility] Last Admin: 09/22/17 04:17 Dose: 100 mls/hr Sodium Chloride (Saline Flush) 10 ml FLUSH ASDIRECTED PRN PRN Reason: Keep Vein Open - Exam Quality Assessment: DVT Prophylaxis General: Alert, Oriented HEENT: Pupils Equal, Pupils Reactive, EOMI, Mucous Membr. Moist/[place] Neck: Supple Lungs: Clear to Auscultation, Normal Respiratory Effort, Decreased Breath Sounds (in the base), Crackles (few expiratory crackles in the base) Cardiovascular: Regular Rate, Regular Rhythm GI/Abdominal Exam: Normal Bowel Sounds, Soft, Non-Tender, No Organomegaly, No Distention, No Abnormal Bruit, No Mass, Pelvis Stable Extremities: Normal Inspection, Normal Range of Motion, Non-Tender, Normal Capillary Refill, Pedal Edema, Other (both legs in UNNA boots.) Skin: Warm, Intact Neurological: No New Focal Deficit - Problem List & Annotations (1) CRF (chronic renal failure) SNOMED Code(s): 05554603 Code(s): N18.9 - CHRONIC KIDNEY DISEASE, UNSPECIFIED Status: Acute Current Visit: Yes (2) CHF (congestive heart failure) SNOMED Code(s): 99163532 Code(s): I50.9 - HEART FAILURE, UNSPECIFIED Status: Acute Current Visit: Yes - Problem List Review Problem List Initiated/Reviewed/Updated: Yes - My Orders Last 24 Hours: My Active Orders 09/21/17 16:32 Patient Status [ADT] Routine Bedrest Bathroom Privileges [RC] ASDIRECTED Height and Weight [RC] 08 Oxygen Therapy [RC] PRN VTE/DVT Education [RC] Per Unit Routine Vital Signs [RC] 08,12,16,20,00,04 Sodium Chloride 0.9% [Saline Flush] 10 ml FLUSH ASDIRECTED PRN Peripheral IV Insertion Adult [OM.PC] Routine Resuscitation Status Routine 09/21/17 16:36 Intake and Output [RC] 06,18 09/21/17 16:45 Sodium Chloride 0.9% [Normal Saline] 1,000 ml IV ASDIRECTED 09/21/17 22:00 Furosemide [Lasix] 20 mg IVPUSH Q8HR 09/21/17 Dinner Heart Healthy Diet [DIET] 09/22/17 07:45 CULTURE MRSA SURVEY [RM] Routine - Assessment Assessment:: Acute on chronic renal failure with improved hyponatremia - Plan Plan:: Assement: Acute on chronic renal failure with on going CHF Plan: Apparently patient has very poor compliance with his health. he does have Chronic CHF with Afib, he continue to drink 1193-5869 cc of fluid and develops chronic lower extremity edema which has been getting worse. He was on bumex 2mg BID. To control his edema recently spironolactone and metazolone were added. as his Creatinine was starting to rasie in the past 2 wks. Also Saraa padmini ws applied by me 1 wk ago as he has skin breakdown from edema in the legs. Now he adamson developed hyponatremia with ARF, which might be worsening of CHF in directly making his renal function worsen. his hyponatremia could be related to renal sodium loss. Hence i have admitted patient to hospital. will stat him on normal saline at 100cc/hr, monitor for CHF signs. also will start IV lasix 20mg q 8 hrs to jump start the kidneys. and place him on low protein diet to prevent further rise of BUN, and monitor. Will repeat CMP and magnesium and PO4 in am. 09/22/17 Pt has been doing well. His I/O are well balanced. 1920/1550, + 500 inevitable losses. his sodium has improved from 127 to 139. his BUN is down from 158 to 137 and his creatinine is improving from 3.76 to 3.12.His phosphorus and magnesium levels are normal too. Pt has been urinating well, might need urinary catheter as he has been frequently waking up all night to urinate. ALso will help with better monitoring of out put. His return of sodium to normal does reassure that his renal functions are improving. Will continue Iv fluid, continue Iv lasix and low protein renal diet. will followup with BMP in am.
[2017-09-22] MEDS ORDERED: Allopurinol 300 MG Tab PO SCH (20:00)
[2017-09-22] MEDS ORDERED: Simvastatin 20 MG Tab PO SCH (20:00)
[2017-09-22] MEDS: Acetaminophen/HYDROcodone 325-5 MG Tab PO SCH (20:54)
[2017-09-23] MEDS: Sodium Chloride 0.9% 1,000 ML IV SCH ×2 (05:32→14:58)
[2017-09-23] MEDS: Furosemide 20 MG/2 ML VIAL IVPUSH SCH ×3 (06:08→22:08)
[2017-09-23] MEDS: Omeprazole 20 MG Cap.CR PO SCH (06:08)
[2017-09-23] MEDS: Aspirin 81 MG Tab.EC PO SCH (07:25)
[2017-09-23] MEDS: Acetaminophen/HYDROcodone 325-5 MG Tab PO SCH ×3 (07:25→20:09)
[2017-09-23] MEDS ORDERED: Cetirizine 10 MG Tab PO SCH (08:00)
--- NOTE | 2017-09-23 10:11 | PCM.PN ---
- General Info Date of Service: 09/23/17 Subjective Update: Pt claims he feels better. has been feeding well. Has been diurseing will IV lasix. No fatigue. No fever. No complaints. Functional Status: Reports: Tolerating Diet, Ambulating, Urinating - Review of Systems General: Denies: Fever, Weakness, Fatigue HEENT: Denies: Sinus Congestion, Sore Throat Pulmonary: Denies: Shortness of Breath, Pleuritic Chest Pain, Sputum, Hemoptysis Cardiovascular: Denies: Chest Pain, Palpitations, Lightheadedness Gastrointestinal: Denies: Abdominal Pain, Nausea, Vomiting Genitourinary: Denies: Dysuria, Frequency Musculoskeletal: Denies: Joint Pain, Joint Swelling Skin: Denies: Pruritis, Rash Neurological: Denies: Confusion, Dizziness, Headache, Numbness, Tingling Psychiatric: Denies: Confusion, Depression - Patient Data Vitals - Most Recent: Last Vital Signs Temp 97.8 F 09/23/17 05:30 Pulse 85 09/23/17 05:30 Resp 16 09/23/17 05:30 BP 111/67 09/23/17 05:30 Pulse Ox 96 09/23/17 05:30 Weight - Most Recent: 85.366 kg I&O - Last 24 Hours: Intake & Output 09/22/17 09/23/17 09/23/17 22:59 06:59 14:59 Intake Total 1693 1200 Output Total 2625 2000 Balance -932 -800 Lab Results Last 24 Hours: Laboratory Results - last 24 hr 09/22/17 09/23/17 Range/Units 06:52 07:15 Sodium 136 (136-145) mmol/L Potassium 3.6 (3.5-5.1) mmol/L Chloride 97 L (98-107) mmol/L Carbon Dioxide 25.5 (21.0-32.0) mmol/L Anion Gap 17.1 H (5.0-15.0) mmol/L BUN 103 H* D (8-26) mg/dL Creatinine 2.27 H D (0.70-1.30) mg/dL Est Cr Clr Drug Dosing 21.47 mL/min Estimated GFR (MDRD) 28 L (>60) MLS/MIN BUN/Creatinine Ratio 45.4 H (6-25) Glucose 106 H (74-100) mg/dL POC Glucose 97 (74-110) mg/dL Calcium 9.3 (8.5-10.1) mg/dL Med Orders - Current: Current Medications Hydrocodone Bitart/Acetaminophen ([place] 325-5 Mg) 1 tab PO TID [facility] Last Admin: 09/23/17 07:25 Dose: 1 tab Allopurinol (Zyloprim) 300 mg PO BEDTIME [facility] Last Admin: 09/22/17 20:54 Dose: 300 mg Aspirin (Halfprin) 81 mg PO DAILY [facility] Last Admin: 09/23/17 07:25 Dose: 81 mg Cetirizine HCl (Zyrtec) 10 mg PO DAILY [facility] Last Admin: 09/23/17 07:25 Dose: 10 mg Furosemide (Lasix) 20 mg IVPUSH Q8HR [facility] Last Admin: 09/23/17 06:08 Dose: 20 mg Sodium Chloride (Normal Saline) 1,000 mls @ 100 mls/hr IV ASDIRECTED [facility] Last Admin: 09/23/17 05:32 Dose: 100 mls/hr Metoprolol Succinate (Toprol Xl) 50 mg PO BEDTIME [facility] Omeprazole (Omeprazole) 20 mg PO DAILY@0700 [facility] Last Admin: 09/23/17 06:08 Dose: 20 mg Simvastatin (Zocor) 20 mg PO BEDTIME [facility] Last Admin: 09/22/17 20:54 Dose: 20 mg Sodium Chloride (Saline Flush) 10 ml FLUSH ASDIRECTED PRN PRN Reason: Keep Vein Open - Exam Quality Assessment: Urine Catheter. No: Skin Breakdown General: Alert, Oriented HEENT: Pupils Equal, Pupils Reactive, EOMI, Mucous Membr. Moist/[place]: Supple Lungs: Clear to Auscultation, Normal Respiratory Effort Cardiovascular: Regular Rate, Regular Rhythm GI/Abdominal Exam: Normal Bowel Sounds, Soft, Non-Tender, No Organomegaly, No Distention, No Abnormal Bruit, No Mass, Pelvis Stable Extremities: Normal Inspection, Normal Range of Motion, Non-Tender, Normal Capillary Refill, Pedal Edema, Other (Unna boot removed today. The skin breakdown have healed well. no open wounds seen. + pitting edema minimal 2+) Skin: Warm, Intact Neurological: No New Focal Deficit Psy/Mental Status: Alert, Normal Affect - Problem List & Annotations (1) CRF (chronic renal failure) SNOMED Code(s): 73472615 Code(s): N18.9 - CHRONIC KIDNEY DISEASE, UNSPECIFIED Status: Acute Current Visit: Yes (2) CHF (congestive heart failure) SNOMED Code(s): 41498754 Code(s): I50.9 - HEART FAILURE, UNSPECIFIED Status: Acute Current Visit: Yes - Problem List Review Problem List Initiated/Reviewed/Updated: Yes - My Orders Last 24 Hours: My Active Orders 09/22/17 10:09 Urinary Catheter Assessment [RC] 09/22/17 10:15 Urinary Catheter Insertion [Insert Urinary Catheter] [OM.PC] Q24H 09/22/17 14:00 CULTURE MRSA SURVEY [RM] Routine 09/22/17 20:00 Acetaminophen/HYDROcodone [[place] 325-5 MG] 1 tab PO TID Allopurinol [Zyloprim] 300 mg PO BEDTIME Simvastatin [Zocor] 20 mg PO BEDTIME 09/23/17 07:00 Omeprazole 20 mg PO DAILY@0700 09/23/17 08:00 Aspirin [Halfprin] 81 mg PO DAILY Cetirizine [ZyrTEC] 10 mg PO DAILY 09/23/17 20:00 Metoprolol Succinate [Toprol XL] 50 mg PO BEDTIME - Assessment Assessment:: Acute on chronic renal failure improving Resolved Hyponatremia - Plan Plan:: Assement: Acute on chronic renal failure with on going CHF Plan: Apparently patient has very poor compliance with his health. he does have Chronic CHF with Afib, he continue to drink 8353-1930 cc of fluid and develops chronic lower extremity edema which has been getting worse. He was on bumex 2mg BID. To control his edema recently spironolactone and metazolone were added. as his Creatinine was starting to rasie in the past 2 wks. Also Unna boot ws applied by me 1 wk ago as he has skin breakdown from edema in the legs. Now he adamson developed hyponatremia with ARF, which might be worsening of CHF in directly making his renal function worsen. his hyponatremia could be related to renal sodium loss. Hence i have admitted patient to hospital. will stat him on normal saline at 100cc/hr, monitor for CHF signs. also will start IV lasix 20mg q 8 hrs to jump start the kidneys. and place him on low protein diet to prevent further rise of BUN, and monitor. Will repeat CMP and magnesium and PO4 in am. 09/22/17 Pt has been doing well. His I/O are well balanced. 1920/1550, + 500 inevitable losses. his sodium has improved from 127 to 139. his BUN is down from 158 to 137 and his creatinine is improving from 3.76 to 3.12.His phosphorus and magnesium levels are normal too. Pt has been urinating well, might need urinary catheter as he has been frequently waking up all night to urinate. ALso will help with better monitoring of out put. His return of sodium to normal does reassure that his renal functions are improving. Will continue Iv fluid, continue Iv lasix and low protein renal diet. will followup with BMP in am. Pt claims that he feels better. He seems happy and more energetic today. Afebrile. I/O 2800/4600. Also his creat today is down to 2.27. BUN is 103 and his GFR is 28. Significant improvement. Will continue IV fluids and IV lasix therapy. Continue to hold nephrotoxic medications, his vitals are stable. Continue renal diet. Also I did remove his Unna boots today. The skin ulcers over the legs have healed. Will place him in Brad wraps to prevent lower extremity edema ( which is chronic). Will followup with BMP in AM.
[2017-09-23] MEDS ORDERED: Metoprolol Succinate 50 MG Tab.ER PO SCH (20:00)
[2017-09-23] MEDS ORDERED: Simvastatin 10 MG Tab PO SCH (20:00)
[2017-09-24] MEDS: Sodium Chloride 0.9% 1,000 ML IV SCH (00:47)
[2017-09-24] MEDS: Omeprazole 20 MG Cap.CR PO SCH (06:05)
[2017-09-24] MEDS: Furosemide 20 MG/2 ML VIAL IVPUSH SCH (06:05)
[2017-09-24] MEDS: Acetaminophen/HYDROcodone 325-5 MG Tab PO SCH (07:50)
[2017-09-24] MEDS: Aspirin 81 MG Tab.EC PO SCH (07:50)
[2017-09-24 10:55] VITALS: BP 118/59
--- NOTE | 2017-09-24 10:58 | PCM.DCSUM1 ---
Discharge Summary - Hospital Course Free Text/Narrative:: Pt was admitted with Acute on chronic renal failure with his creatinine of 3.76 and BUN of 158. Apparently patient had been on high dose of bumex 4mg daily equivalent to 160mg of Lasix. And on spironolactone and metazolone. Pt's diuretic including all the nephrotoxic medication were discontinue. Pt was started on Iv NS at 100cc/hr considering his CHF, and was placed on pulse Iv lasix of 20mg IV every 8 hrs. Renal diet and close monitoring of his I/O. On day 1 pt was feeling better, his creat was down to 3.12 with BUN of 137 and also he had balanced I/O 1900/1500. Pt clinically feel better. Plan was to continue present plan. His Creat has improved from 3.12 to 2.27 to 1.78 and BUN was 137 to 103 to 77. His has diuresed well. His Sodium today is 134 stable. He has been on Iv NS at 100cc/ day. Pt has clinically improved. He has been on too many medication, which are nephrotoxic. Hence I have made changes to his medications. Plan it to discontinue his IV fluids keep in on renal diet, continue present regime. Pt is clinically stable and improving. No concerns from patient. Brief History: Pt is care center resident, who has had significant elevation of his Creat of 3.76 and 158. Admitted with diagnosis of ARF on CRF wtih CHF. Kindly see my H&P for details. - Discharge Data Discharge Date: 09/24/17 Discharge Disposition: DC/Tfer to Intermediate Care [facility] Condition: Good - Discharge Diagnosis/Problem(s) (1) CRF (chronic renal failure) SNOMED Code(s): 39380702 ICD Code: N18.9 - CHRONIC KIDNEY DISEASE, UNSPECIFIED Status: Acute Current Visit: Yes (2) CHF (congestive heart failure) SNOMED Code(s): 15190250 ICD Code: I50.9 - HEART FAILURE, UNSPECIFIED Status: Acute Current Visit : Yes - Patient Instructions Diet: Renal Diet Fluid Restriction: 1500 mL Activity: As Tolerated, Elevate Extremity Showering/Bathing: May Shower - Discharge Plan Home Medications: Home Meds Omeprazole 20 mg PO DAILY 08/25/13 [History] Simvastatin [Zocor] 20 mg PO BEDTIME tablet 10/16/16 [Rx] Allopurinol [Zyloprim] 300 mg PO BEDTIME 09/21/17 [History] Cholecalciferol (Vitamin D3) [Vitamin D] 2,000 units PO DAILY 09/21/17 [History] Dextran 70/Hypromellose [Artificial Tears] 15 ml OP QID PRN 09/21/17 [History] Enalapril Maleate [Vasotec] 2.5 mg PO BID 09/21/17 [History] Hydrocodone/Acetaminophen [Vicodin 5-300 mg Tablet] 5 - 325 mg PO TID 09/21/17 [ History] Lactobacillus Acidophilus [Acidophilus] 1 each PO DAILY 09/21/17 [History] Metoprolol Succinate [Toprol XL 100mg] 50 mg PO BEDTIME 09/21/17 [History] Polyethylene Glycol 3350 [MiraLAX] 17 gm PO BEDTIME 09/21/17 [History] Triamcinolone Acetonide [Triamcinolone Acetonide 0.1% Crm] 15 gm .XX ASDIRECTED 09/21/17 [History] Furosemide [Lasix] 20 mg PO 1500 30 Days #30 tab 09/24/17 [Rx] Furosemide [Lasix] 40 mg PO DAILY 30 Days #30 tab 09/24/17 [Rx] - Discharge Summary/Plan Comment DC Time >30 min.: Yes Discharge Summary/Plan Comment: Repeat BMP on 09/28/17 Fluid 1500/day maximum Will followup in care center on thursday - General Info Subjective Update: Pt claims he feels fine. has had good urine output. His I/O is 4260/2500. No fever or chills. On renal diet, tolerating diet well. Functional Status: Reports: Tolerating Diet, Urinating - Review of Systems General: Denies: Fever, Weakness, Fatigue HEENT: Denies: Rhinitis, Visual Changes Pulmonary: Denies: Sputum, Hemoptysis Gastrointestinal: Denies: Abdominal Pain, Difficulty Swallowing, Nausea, Vomiting Genitourinary: Reports: Urgency. Denies: Flank Pain Musculoskeletal: Denies: Joint Pain, Joint Swelling Skin: Denies: Bruising, Pruritis Neurological: Denies: Confusion, Dizziness, Headache, Numbness, Tingling - Patient Data Vitals - Most Recent: Last Vital Signs Temp 98.2 F 09/23/17 20:00 Pulse 85 09/23/17 20:09 Resp 16 09/23/17 20:00 BP 136/66 09/23/17 20:09 Pulse Ox 100 09/23/17 20:00 Weight - Most Recent: 85.275 kg I&O - Last 24 hours: Intake & Output 09/23/17 09/24/17 09/24/17 22:59 06:59 14:59 Intake Total 3050 1210 Output Total 900 1600 Balance 2150 -390 Lab Results - Last 24 hrs: Laboratory Results - last 24 hr 09/24/17 Range/Units 07:20 Sodium 134 L (136-145) mmol/L Potassium 3.4 L (3.5-5.1) mmol/L Chloride 95 L (98-107) mmol/L Carbon Dioxide 26.4 (21.0-32.0) mmol/L Anion Gap 16.0 H (5.0-15.0) mmol/L BUN 72 H* D (8-26) mg/dL Creatinine 1.78 H D (0.70-1.30) mg/dL Est Cr Clr Drug Dosing 27.38 mL/min Estimated GFR (MDRD) 37 L (>60) MLS/MIN BUN/Creatinine Ratio 40.4 H (6-25) Glucose 124 H (74-100) mg/dL Calcium 9.6 (8.5-10.1) mg/dL INA Results - Last 24 hrs: Microbiology 09/22/17 14:00 MRSA Surveillance Culture - Final Nares, Unspecified NO MRSA ISOLATED Med Orders - Current: Current Medications Hydrocodone Bitart/Acetaminophen ([place] 325-5 Mg) 1 tab PO TID [facility] Last Admin: 09/24/17 07:50 Dose: 1 tab Allopurinol (Zyloprim) 200 mg PO BEDTIME [facility] Aspirin (Halfprin) 81 mg PO DAILY [facility] Last Admin: 09/24/17 07:50 Dose: 81 mg Cetirizine HCl (Zyrtec) 10 mg PO DAILY [facility] Last Admin: 09/23/17 07:25 Dose: 10 mg Furosemide (Lasix) 20 mg IVPUSH Q8HR [facility] Last Admin: 09/24/17 06:05 Dose: 20 mg Metoprolol Succinate (Toprol Xl) 50 mg PO BEDTIME [facility] Last Admin: 09/23/17 20:09 Dose: 50 mg Omeprazole (Omeprazole) 20 mg PO DAILY@0700 [facility] Last Admin: 09/24/17 06:05 Dose: 20 mg Simvastatin (Zocor) 5 mg PO BEDTIME [facility] Last Admin: 09/23/17 20:10 Dose: 5 mg Sodium Chloride (Saline Flush) 10 ml FLUSH ASDIRECTED PRN PRN Reason: Keep Vein Open Discontinued Medications Allopurinol (Zyloprim) 300 mg PO BEDTIME [facility] Last Admin: 09/22/17 20:54 Dose: 300 mg Sodium Chloride (Normal Saline) 1,000 mls @ 100 mls/hr IV ASDIRECTED [facility] Last Admin: 09/24/17 00:47 Dose: 100 mls/hr Simvastatin (Zocor) 20 mg PO BEDTIME [facility] Last Admin: 09/22/17 20:54 Dose: 20 mg - Exam Quality Assessment: Reports: Urine Catheter. Denies: Skin Breakdown General: Reports: Alert, Oriented HEENT: Reports: Pupils Equal, Pupils Reactive, EOMI, Mucous Membr. Moist/[place] Neck: Reports: Supple Lungs: Reports: Clear to Auscultation, Normal Respiratory Effort Cardiovascular: Reports: Regular Rate, Regular Rhythm GI/Abdominal Exam: Normal Bowel Sounds, Soft, Non-Tender, No Organomegaly, No Distention, No Abnormal Bruit, No Mass, Pelvis Stable Back Exam: Reports: Normal Inspection Extremities: Normal Inspection, Normal Range of Motion, Non-Tender, Normal Capillary Refill, Pedal Edema (chronic in Brad wrap dressing) Skin: Reports: Warm, Intact Wound/Incisions: Reports: Healing Well Neurological: Reports: No New Focal Deficit *Q Meaningful Use (DIS) - VTE *Q VTE Criteria *Q: - Stroke *Q Stroke Criteria *Q: - AMI *Q AMI Criteria *Q:
[2017-09-24] MEDS ORDERED: Allopurinol 100 MG Tab PO SCH (20:00)
== END 2017-09-24 12:00 | DRG 683 ==
LOC: LB.CC 10:15 → UNDOADMIN 13:30 → LB.MS 13:30
PROVIDERS: ADMIT Family Medicine; ATTEND Family Medicine
DX: N17.9 Acute kidney failure, unspecified (principal); I13.0 Hypertensive heart and chronic kidney disease with heart failure and stage 1 through stage 4 chronic kidney disease, or unspecified chronic kidney disease; E87.1 Hypo-osmolality and hyponatremia; L97.929 Non-pressure chronic ulcer of unspecified part of left lower leg with unspecified severity; L97.919 Non-pressure chronic ulcer of unspecified part of right lower leg with unspecified severity; I50.9 Heart failure, unspecified; N18.9 Chronic kidney disease, unspecified; E11.22 Type 2 diabetes mellitus with diabetic chronic kidney disease; Z87.891 Personal history of nicotine dependence; M10.9 Gout, unspecified; E78.00 Pure hypercholesterolemia, unspecified; M19.90 Unspecified osteoarthritis, unspecified site; Z66 Do not resuscitate; R32 Unspecified urinary incontinence; I48.91 Unspecified atrial fibrillation
CPT/HCPCS: 36415; 51702; 80048; 80053; 82962; 83735; 84100; 85027; A9270-GY; J1940; J7040

== ENCOUNTER 2017-10-17 16:38 | Emergency (ER) | payer MEDICARE, MEDICAID ==
--- NOTE | 2017-10-17 16:48 | EDM.PDOC ---
ED HPI GENERAL MEDICAL PROBLEM - General Chief Complaint: General Stated Complaint: Blood in Urine Time Seen by Provider: 10/17/17 16:40 Source of Information: Reports: Patient History Limitations: Reports: No Limitations - History of Present Illness INITIAL COMMENTS - FREE TEXT/NARRATIVE: Pt is resident of the care center here at [facility]. according to patient he has been having painful urination since today morning. he claims he was fine last night. He has been hurting to urinate since today morning. He feels urge to urinate, but the tip of his penis hurts. No fever or chills. no nausea or vomiting.No back pain.He claims he is now having pain with passing urine and had blood in the urine. UA done today does show 10-20 RBCs on microscopy. Pt has been feeding well. no other complaints. Onset: Today Onset Date: 10/17/17 Onset Time: 09:00 - Related Data Allergies Allergy/AdvReac Type Severity Reaction Status Date / Time No Known Allergies Allergy Verified 09/21/17 16:55 Home Meds: Home Meds Omeprazole 20 mg PO DAILY 08/25/13 [History] Simvastatin [Zocor] 20 mg PO BEDTIME tablet 10/16/16 [Rx] Allopurinol [Zyloprim] 300 mg PO BEDTIME 09/21/17 [History] Cholecalciferol (Vitamin D3) [Vitamin D] 2,000 units PO DAILY 09/21/17 [History] Dextran 70/Hypromellose [Artificial Tears] 15 ml OP QID PRN 09/21/17 [History] Enalapril Maleate [Vasotec] 2.5 mg PO BID 09/21/17 [History] Hydrocodone/Acetaminophen [Vicodin 5-300 mg Tablet] 5 - 325 mg PO TID 09/21/17 [ History] Lactobacillus Acidophilus [Acidophilus] 1 each PO DAILY 09/21/17 [History] Metoprolol Succinate [Toprol XL 100mg] 50 mg PO BEDTIME 09/21/17 [History] Polyethylene Glycol 3350 [MiraLAX] 17 gm PO BEDTIME 09/21/17 [History] Triamcinolone Acetonide [Triamcinolone Acetonide 0.1% Crm] 15 gm .XX ASDIRECTED 09/21/17 [History] Furosemide [Lasix] 20 mg PO 1500 30 Days #30 tab 09/24/17 [Rx] Furosemide [Lasix] 40 mg PO DAILY 30 Days #30 tab 09/24/17 [Rx] Past Medical History HEENT History: Reports: Impaired Vision Cardiovascular History: Reports: High Cholesterol, Hypertension, Other (See Below) Other Cardiovascular History: CHF Respiratory History: Reports: COPD Gastrointestinal History: Reports: GERD, Other (See Below) Other Gastrointestinal History: acid reflux Genitourinary History: Reports: Urinary Incontinence Other Genitourinary History: increased frequency of urination Musculoskeletal History: Reports: Osteoarthritis, Other (See Below) Other Musculoskeletal History: kyphosis of thoracic region Psychiatric History: Reports: Dementia Endocrine/Metabolic History: Reports: Diabetes, Type II Other Endocrine/Metabolic History: at [facility], does not have blood glucoses taken nor does he take any medications for it. Hematologic History: Reports: None Dermatologic History: Reports: Urticaria, Other (See Below) Other Dermatologic History: rash in groin area - Infectious Disease History Infectious Disease History: Reports: Chicken Pox - Past Surgical History Male Surgical History: Reports: None Social & Family History - Family History Family Medical History: Noncontributory HEENT: Reports: None Cardiac: Reports: None OBGYN: Reports: None Musculoskeletal: Reports: None Hematologic: Reports: None Dermatologic: Reports: None - Tobacco Use Smoking Status *Q: Former Smoker Years of Tobacco use: 60 Packs/Tins Daily: 0 Used Tobacco, but Quit: Yes Month/Year Tobacco Last Used: na Second Hand Smoke Exposure: No - Caffeine Use Caffeine Use: Reports: Coffee Other Caffeine Use: 2-3 cup/day - Alcohol Use Days Per Week of Alcohol Use: 1 Number of Drinks Per Day: 0 Total Drinks Per Week: 0 - Recreational Drug Use Recreational Drug Use: No ED ROS GENERAL - Review of Systems Review Of Systems: See Below Constitutional: Denies: Fever, Chills HEENT: Denies: Rhinitis, Throat Pain, Throat Swelling Respiratory: Denies: Shortness of Breath, Wheezing, Cough, Sputum Cardiovascular: Denies: Chest Pain, Lightheadedness GI/Abdominal: Denies: Abdominal Pain, Nausea, Vomiting : Reports: Dysuria, Hematuria, Urgency. Denies: Pain, Urinary Retention Musculoskeletal: Denies: Joint Pain, Joint Swelling Skin: Denies: Cyanosis, Jaundice, Bruising, Pruritis, Rash Neurological: Denies: Confusion, Dizziness, Seizure, Syncope ED EXAM, GENERAL - Physical Exam Exam: See Below Exam Limited By: No Limitations General Appearance: Alert, WD/WN, No Apparent Distress Eye Exam: Bilateral Eye: EOMI, PERRL Ears: Normal External Exam, Normal Canal, Hearing Grossly Normal, Normal TMs Ear Exam: Bilateral Ear: Auricle Normal, Canal Normal, TM normal Nose: Normal Inspection, Normal Mucosa, No Blood Throat/Mouth: Normal Inspection, Normal Lips, Normal Teeth, Normal Gums, Normal Oropharynx, Normal Voice, No Airway Compromise Head: Atraumatic, Normocephalic Neck: Normal Inspection, Supple, Non-Tender, Full Range of Motion Respiratory/Chest: No Respiratory Distress, Lungs Clear, Normal Breath Sounds, No Accessory Muscle Use, Chest Non-Tender Cardiovascular: Normal Peripheral Pulses, Regular Rate, Rhythm, No Edema, No Gallop, No JVD, No Murmur, No Rub GI/Abdominal: Normal Bowel Sounds, Soft, Non-Tender, No Organomegaly, No Distention, No Abnormal Bruit, No Mass (Male) Exam: No: Rash, Scrotum Tenderness (L), Scrotum Tenderness (R), Testicular Mass, Testicular Tenderness (L) Rectal (Males) Exam: Normal Exam, Normal Rectal Tone, Prostate Normal Back Exam: Normal Inspection, Full Range of Motion, NT Extremities: Normal Inspection, Normal Range of Motion, Non-Tender, Normal Capillary Refill, Pedal Edema Psychiatric: Normal Affect, Normal Mood Course - Vital Signs Text/Narrative:: Pt's UA did show 10-20 RBCs. Apparently when patient was in the emergency room he felt a strong urge to urinate, and after he urinated he started to feel better. He claims the pain and discomfort in his penis had resolved. But his Ct was done after the relief of pain, which was negative for any genitourinary abnormality. It does appear pt has a small stone that he was passing, which caused his transient hematuria with penile pain and discomfort as the stone was passing. Pt feeling better. Patient was reassured and discharged back to care center. - Orders/Labs/Meds Orders: Active Orders 24 hr Category Date Time Status Kidney Stone Protocol [CT] Stat Exams 10/17/17 16:43 Taken Labs: Laboratory Tests 10/17/17 Range/Units 15:05 Urine Color Yellow Urine Appearance Clear (CLEAR) Urine pH 7.5 (5.0-8.0) Ur Specific [place] 1.015 (1.003-1.030) Urine Protein Negative (NEGATIVE) mg/dL Urine Glucose (UA) Negative (NEGATIVE) mg/dL Urine Ketones Negative (NEGATIVE) mg/dL Urine Occult Blood Large H (NEGATIVE) Urine Nitrite Negative (NEGATIVE) Urine Bilirubin Negative (NEGATIVE) Urine Urobilinogen 1.0 (0.2-1.0) E.U./dL Ur Leukocyte Esterase Negative (NEGATIVE) Urine RBC 10-20 H /HPF Urine WBC Not seen /HPF Ur Squamous Epith Cells Occasional /HPF Urine Bacteria Rare /HPF Departure - Departure Time of Disposition: 17:10 Disposition: DC/Tfer to [facility] Condition: Fair Clinical Impression: Ureteric colic, Hematuria - Discharge Information Forms: ED Department Discharge Additional Instructions: Dc to [facility], no new orders, continue previous orders per Dr Blackburn. Tx via w/c to [facility] - Problem List & Annotations (1) Hematuria SNOMED Code(s): 20537742 Code(s): R31.9 - HEMATURIA, UNSPECIFIED Status: Acute (2) Ureteric colic SNOMED Code(s): 12110427 Code(s): N23 - UNSPECIFIED RENAL COLIC Status: Acute - Problem List Review Problem List Initiated/Reviewed/Updated: Yes - My Orders Last 24 Hours: My Active Orders 10/17/17 16:43 Kidney Stone Protocol [CT] Stat - Assessment/Plan Last 24 Hours: My Active Orders 10/17/17 16:43 Kidney Stone Protocol [CT] Stat Assessment:: Hematuria- ureteric colic- improved Plan: Pt's UA did show 10-20 RBCs. Apparently when patient was in the emergency room he felt a strong urge to urinate, and after he urinated he started to feel better. He claims the pain and discomfort in his penis had resolved. But his Ct was done after the relief of pain, which was negative for any genitourinary abnormality. It does appear pt has a small stone that he was passing, which caused his transient hematuria with penile pain and discomfort as the stone was passing. Pt feeling better. Patient was reassured and discharged back to [facility].
--- NOTE | 2017-10-18 23:23 | CT ---
DATE OF SERVICE: 10/17/2017 CLINICAL DATA: Hematuria. UNENHANCED ABDOMEN AND PELVIC CT: Multislice acquisition through the abdomen and pelvis without IV or oral contrast was performed. No priors. Breathing motion artifact degrades image quality. There are small bilateral pleural effusions. There is atelectasis and consolidation in both lower lungs. Pneumonia should be considered. The heart is enlarged. There is a small pericardial effusion. There are coronary artery calcifications. There is a moderate sized hiatal hernia. The liver is normal size with homogeneous attenuation. No focal hepatic lesions. There is a large calcified gallstone noted within the gallbladder. No definite gallbladder wall thickening or pericholecystic fluid. There are multiple calcifications within the spleen consistent with prior granulomatous disease. The spleen otherwise appears normal. The pancreas appears normal. The right and left adrenals appear normal. There is mild atrophy of both kidneys. No nephrocalcinosis or nephrolithiasis. No hydronephrosis or hydroureter. The bladder is partially fluid filled and appears normal. The appendix is not dilated. No evidence of appendicitis. There is a small umbilical hernia containing fat. There is a moderate amount of stool present throughout the colon. There is diverticulosis of the descending and sigmoid colon. No evidence of diverticulitis. No free air. No free fluid. No dilated loops of bowel. No adenopathy. No aortic aneurysm. The patient is status post internal fixation of the right hip. IMPRESSION: 1. Cardiomegaly. 2. Areas of consolidation in both lung bases. Pneumonia should be considered. Small bilateral pleural effusions. 3. Moderate sized hiatal hernia. 4. Cholelithiasis. 5. Diverticulosis. No evidence of diverticulitis. 6. Multiple other findings as discussed above. [id number] [facility]
== END 2017-10-17 17:43 ==
LOC: LB.ED 16:38
DX: N23 Unspecified renal colic (principal); R31.9 Hematuria, unspecified; K80.20 Calculus of gallbladder without cholecystitis without obstruction; I10 Essential (primary) hypertension; E78.00 Pure hypercholesterolemia, unspecified; J44.9 Chronic obstructive pulmonary disease, unspecified; E11.9 Type 2 diabetes mellitus without complications; K21.9 Gastro-esophageal reflux disease without esophagitis; Z87.891 Personal history of nicotine dependence; Z79.899 Other long term (current) drug therapy
CPT/HCPCS: 74176; 81001; 99283; 99284-25

== ENCOUNTER 2018-02-06 13:12 | Emergency (ER) | payer MEDICARE, BC ==
--- NOTE | 2018-02-06 16:21 | ER ---
HISTORY OF PRESENT ILLNESS: The patient is an 87-year-old, [facility] resident, fell on the 02/03/2018. He is complaining today of shoulder pain, and he has some swelling in his left hand. It is left shoulder that hurts. The patient has had problems with that shoulder prior to his fall. He is currently on Vicodin scheduled there for pain relief. He is complaining of pain in the shoulder, but not really the hand. PHYSICAL EXAMINATION: GENERAL: He is alert, oriented, no apparent distress. VITAL SIGNS: Temperature is 99.3, blood pressure is 133/69, O2 sats 97% on room air, pulse is 81. HEENT: Generally unremarkable. LUNGS: Clear. HEART: Regular sinus rhythm. EXTREMITIES: He is unable to abduct the left shoulder. He is unable to abduct the right shoulder either. He does have some swelling on his hand, primarily on the index and middle finger. The middle finger is somewhat ecchymotic. It is not particularly tender to palpation. We did go ahead and obtain an x-ray of the shoulder, which appears negative, and we obtained an x-ray of his left hand which was difficult as the patient has fairly severe arthritis and has a lot of ulnar deviation and contracture to the fingers. He does appear to have a fracture of the middle phalanx of the middle finger on the left hand. Final impression radiology review is pending. FINAL IMPRESSION: Fracture, middle phalanx, middle finger, left hand. PLAN: We will go ahead and continue him on his Vicodin. He does not appear to be in any distress by this. The fracture is pretty much nondisplaced and splinting his hand is going to be very difficult secondary to the arthritis. We will have him follow up with the orthopedic nurse practitioner on 02/16/2018, and continue on the Vicodin for pain control, which he is already on. HAILEY/CHRISTIE /[id number]
--- NOTE | 2018-02-08 07:23 | CR ---
DATE OF SERVICE: 02/06/18 CLINICAL DATA: injury LEFT HAND: There is diffuse osteopenia. There is a 3 mm metallic density foreign body in the soft tissues adjacent to the proximal phalanx of the 3rd digit. There are osteoarthritic changes involving multiple joints. There is severe ulnar deviation of the fingers with respect to the metacarpals. There is also ventral subluxation/dislocation of the 2nd, 3rd, 4th, and 5th MCP joints. There is an oblique lucency through the base of the middle phalanx of the 3rd digit consistent with an intra-articular fracture. No other acute abnormalities. [id number] [facility]
--- NOTE | 2018-02-08 07:29 | CR ---
DATE OF SERVICE: 02/06/18 CLINICAL DATA: injury LEFT SHOULDER: There is diffuse osteopenia. There are osteoarthritic changes of the AC joint. No acute fracture or dislocation. No focal lytic or blastic bone lesions. [id number] [facility]
== END 2018-02-06 14:20 ==
LOC: LB.ED 13:12
DX: S62.653A Nondisplaced fracture of middle phalanx of left middle finger, initial encounter for closed fracture (principal); W19.XXXA Unspecified fall, initial encounter
CPT/HCPCS: 73030-LT; 73120-LT; 99284

== ENCOUNTER → 2019-06-16 | Outpatient (CLI) | payer MEDICARE, MEDICAID | LOC: LB.CC 08:45 | PROVIDERS: ATTEND Family Medicine | DX: Z79.899 Other long term (current) drug therapy (principal) | CPT/HCPCS: 36415; 84132 ==